=== PATIENT | female | born 1950 ===

== ENCOUNTER 2019-06-03 05:57 | Day surgery (SDC) | payer OTHER ==
[~2019-06-03 05:57] MED LIST: GLUMETZA500 MG PO; HYZAAR 100-251 EACH PO; ZOCOR20 MG PO
[2019-06-03] MEDS ORDERED: MACROBID 100 M100 MG PO (10:23)
[2019-06-03] MEDS ORDERED: ULTRACET PO (10:23)
== END 2019-06-03 15:40 | disposition home or self-care (01) ==
LOC: CIR.AMB 05:57
DX: N81.11 Cystocele, midline (principal); N81.5 Vaginal enterocele